=== PATIENT | male | born 1945 | race Native Hawaiian/Other Pacific Islander ===

== ENCOUNTER 2017-11-08 08:21 | Outpatient (CLI) | payer OTHER, BC ==
[~2017-11-08 08:21] MED LIST: AMLO5TAB PO; AMOX875T8; DIALYVITE PO; EQL ASPIRIN325 M1 OR; HYDROCHLOROT12.5 M1 PO; IRBE150T8 PO; LABETALOL100 MG PO; LEVO0.1224 PO; LIPITOR10 MG PO; OMEP20CA PO; SODIUM BICAR650 MG PO; TWYNSTA PO; ZIN PO
== END 2017-11-08 19:12 | disposition home or self-care (01) ==
LOC: LABW 08:21
DX: E03.8 Other specified hypothyroidism (principal); R73.09 Other abnormal glucose; I10 Essential (primary) hypertension
CPT/HCPCS: 36415; 84439; 84443

== ENCOUNTER 2018-05-02 08:15 | Outpatient (CLI) | payer OTHER, BC | END 2018-05-02 22:01 | disposition home or self-care (01) | LOC: LABW 08:15 | DX: E03.8 Other specified hypothyroidism (principal); I10 Essential (primary) hypertension; R73.09 Other abnormal glucose; M10.071 Idiopathic gout, right ankle and foot | CPT/HCPCS: 36415; 84439; 84443; 84550 ==

== ENCOUNTER 2018-06-14 08:36 | Outpatient (CLI) | payer OTHER, BC ==
[2018-06-14 08:56] LABS: PLATELET COUNT 119 K/uL (142-355)
[2018-06-14 09:36] LABS: POTASSIUM 4.2 mmol/L (3.6-5.2)
== END 2018-06-14 23:44 | disposition home or self-care (01) ==
LOC: LABW 08:36
PROVIDERS: Nurse Practitioner
DX: R79.89 Other specified abnormal findings of blood chemistry (principal); K76.0 Fatty (change of) liver, not elsewhere classified; K74.0 Hepatic fibrosis
CPT/HCPCS: 36415; 80053; 82105; 82140; 85027

== ENCOUNTER 2019-02-02 14:07 | Outpatient (CLI) | payer OTHER, BC | END 2019-02-02 19:59 | disposition home or self-care (01) | LOC: RAD 14:07 | DX: J44.1 Chronic obstructive pulmonary disease with (acute) exacerbation (principal) ==

== ENCOUNTER 2019-03-08 12:52 | Inpatient (IN) | payer OTHER, BC ==
[~2019-03-08] VITALS: Ht 175.3 cm; Wt 91.4 kg
[2019-03-08 12:58] VITALS: BP 120/65; TEMP 98.9
[2019-03-08 13:48] LABS: PLATELET COUNT 111 K/uL (142-355)
[2019-03-08 14:03] LABS: POTASSIUM 3.8 mmol/L (3.6-5.2); SODIUM 138 mmol/L (136-145)
[2019-03-08] MEDS ORDERED: FURO20TA67 PO (16:26)
[2019-03-08] MEDS ORDERED: OMEPRAZOLE DR40 MG PO (16:27)
[2019-03-08] MEDS ORDERED: ULORIC40 MG PO ×2 (16:27→18:03)
[2019-03-08] MEDS ORDERED: LABETALOL100 MG PO (17:55)
[2019-03-08] MEDS ORDERED: HYDROCHLOROT12.5 M1 PO (17:56)
[2019-03-08] MEDS ORDERED: TWYNSTA PO (17:57)
[2019-03-08] MEDS ORDERED: LEVO0.2T35 PO (17:58)
[2019-03-08] MEDS ORDERED: SODI650T PO (17:59)
[2019-03-08 18:00] VITALS: BP 146/68; TEMP 98; Ht 175.3 cm; Wt 91.4 kg
[2019-03-08] MEDS ORDERED: OMEPRAZOLE40 MG PO (18:00)
[2019-03-08] MEDS ORDERED: FISH OIL1 C10 PO (18:00)
[2019-03-08] MEDS ORDERED: FLONASE AL50 MCG/ACT NAS (18:01)
[2019-03-08] MEDS ORDERED: BIOTIN1000 MCG PO (18:01)
[2019-03-08] MEDS ORDERED: ZOFRAN8 MG PO (18:02)
[2019-03-08] MEDS ORDERED: MECLIZINE25 MG PO (18:03)
[2019-03-08 19:00] VITALS: BP 121/66; BP 129/77
[2019-03-08 20:00] VITALS: BP 130/70; TEMP 98.3
[2019-03-08 21:00] VITALS: BP 140/85
[2019-03-08 23:00] VITALS: BP 140/77
[2019-03-09] VITALS (22 sets, daily range): BP systolic 94–143; BP diastolic 46–83; TEMP 97.2–98.4
[2019-03-09 05:14] LABS: PLATELET COUNT 104 K/uL (142-355)
[2019-03-09 05:32] LABS: POTASSIUM 4.2 mmol/L (3.6-5.2)
[2019-03-10] VITALS (16 sets, daily range): BP systolic 89–136; BP diastolic 47–92; TEMP 97.5–98.1
[2019-03-10 06:50] LABS: PLATELET COUNT 127 K/uL (142-355)
[2019-03-10 08:12] LABS: POTASSIUM 4.5 mmol/L (3.6-5.2)
[2019-03-11] VITALS: BP 104/65; TEMP 98.4
[2019-03-11 04:00] VITALS: BP 103/58; TEMP 98.2
[2019-03-11 05:22] LABS: PLATELET COUNT 103 K/uL (142-355)
[2019-03-11 08:00] VITALS: BP 110/72; TEMP 97.5
== END 2019-03-11 09:11 | disposition home or self-care (01) | DRG 57 ==
LOC: ED 12:52 → ICU 16:41 → MED/SURG 03-10 11:10
PROVIDERS: Internal Medicine; ADMIT Emergency Medicine
DX: I69.314 Frontal lobe and executive function deficit following cerebral infarction (principal); N18.4 Chronic kidney disease, stage 4 (severe); G93.49 Other encephalopathy; E03.8 Other specified hypothyroidism; G47.33 Obstructive sleep apnea (adult) (pediatric); J44.9 Chronic obstructive pulmonary disease, unspecified; I73.89 Other specified peripheral vascular diseases; I12.9 Hypertensive chronic kidney disease with stage 1 through stage 4 chronic kidney disease, or unspecified chronic kidney disease
CPT/HCPCS: 36415; 80053; 82550; 82553; 84484; 85027; 93005; 99283; J1650

== ENCOUNTER 2019-03-19 13:35 | Emergency (ER) | payer OTHER, BC ==
[~2019-03-19] VITALS: Ht 175.3 cm; Wt 88.0 kg
[~2019-03-19 13:35] MED LIST changes: +BIOTIN1000 MCG PO; +FISH OIL1 C10 PO; +FLONASE AL50 MCG/ACT NAS; +FURO20TA67 PO; +LEVO0.2T35 PO; +MECLIZINE25 MG PO; +OMEPRAZOLE DR40 MG PO; +OMEPRAZOLE40 MG PO; +SODI650T PO; +ULORIC40 MG PO; +ZOFRAN8 MG PO
[2019-03-19 14:42] LABS: PLATELET COUNT 121 K/uL (142-355)
[2019-03-19 15:00] LABS: SODIUM 138 mmol/L (136-145)
[2019-03-19 17:05] VITALS: BP 119/76; TEMP 98.1
== END 2019-03-19 17:11 | disposition home or self-care (01) ==
LOC: ED 13:35
PROVIDERS: Family Medicine
DX: G45.9 Transient cerebral ischemic attack, unspecified (principal)
CPT/HCPCS: 36415; 80053; 81000; 82550; 84484; 85027; 85379; 85610; 85730; 93005; 99283

== ENCOUNTER 2019-10-31 08:05 | Outpatient (CLI) | payer OTHER, BC ==
[2019-10-31 09:14] LABS: POTASSIUM 4.4 mmol/L (3.6-5.2)
[2019-10-31 09:55] LABS: PLATELET COUNT 145 K/uL (142-355)
== END 2019-10-31 20:13 | disposition home or self-care (01) ==
LOC: LABW 08:05
PROVIDERS: Internal Medicine
DX: I25.10 Atherosclerotic heart disease of native coronary artery without angina pectoris (principal); Z79.899 Other long term (current) drug therapy
CPT/HCPCS: 36415; 80053; 83036; 85027

== ENCOUNTER 2019-11-07 08:44 | Outpatient (CLI) | payer OTHER, BC ==
[2019-11-07 11:23] LABS: POTASSIUM 4.4 mmol/L (3.6-5.2)
== END 2019-11-07 20:49 | disposition home or self-care (01) ==
LOC: LABW 08:44
PROVIDERS: Nurse Practitioner Family
DX: E03.8 Other specified hypothyroidism (principal); R73.09 Other abnormal glucose; I10 Essential (primary) hypertension
CPT/HCPCS: 36415; 80053; 80061; 84439; 84443

== ENCOUNTER 2019-12-22 08:41 | Emergency (ER) | payer OTHER, BC ==
[~2019-12-22] VITALS: Ht 175.3 cm; Wt 96.2 kg
[2019-12-22 09:50] LABS: PLATELET COUNT 74 K/uL (142-355)
[2019-12-22 09:57] LABS: POTASSIUM 4.1 mmol/L (3.6-5.2)
[2019-12-22 11:25] VITALS: BP 114/70; TEMP 100.9
== END 2019-12-22 11:26 | disposition home or self-care (01) ==
LOC: ED 08:41
PROVIDERS: Family Medicine
DX: J10.1 Influenza due to other identified influenza virus with other respiratory manifestations (principal); R50.9 Fever, unspecified
CPT/HCPCS: 80053; 85027; 87502; 87651; 99283

== ENCOUNTER 2021-03-03 09:11 | Outpatient (CLI) | payer BC | END 2021-03-03 19:19 | disposition home or self-care (01) | LOC: RAD 09:11 | PROVIDERS: ATTEND Internal Medicine | DX: J40 Bronchitis, not specified as acute or chronic (principal) ==

== ENCOUNTER 2021-03-13 11:22 | Inpatient (IN) | payer BC ==
[~2021-03-13] VITALS: Ht 175.3 cm; Wt 89.6 kg
[2021-03-13 12:29] LABS: PLATELET COUNT 54 K/uL (142-355)
[2021-03-13 13:02] VITALS: BP 155/62; TEMP 97.9; Ht 175.3 cm; Wt 89.6 kg
[2021-03-13] MEDS ORDERED: CRESTOR20 MG PO (13:53)
[2021-03-13] MEDS ORDERED: SODI650T PO (13:53)
[2021-03-13] MEDS ORDERED: CEFUROXIME500 MG PO (13:55)
[2021-03-13] MEDS ORDERED: ISOS30TA17 PO (13:55)
[2021-03-13] MEDS ORDERED: BENZONATATE100 MG PO (13:57)
[2021-03-13] MEDS ORDERED: METOPROLOL25 M1 PO (13:57)
[2021-03-13] MEDS ORDERED: SITA50TA2 PO (13:58)
[2021-03-13] MEDS ORDERED: APIX1TAB PO (13:59)
[2021-03-13] MEDS ORDERED: EUTHYROX125 MCG PO (14:00)
[2021-03-13] MEDS ORDERED: DIALYVITE PO (14:01)
[2021-03-13] MEDS ORDERED: ZIN PO (14:01)
[2021-03-13] MEDS ORDERED: BIOTIN1000 MCG PO (14:02)
[2021-03-13] MEDS ORDERED: VITAMIN D35000 UNIT PO (14:03)
[2021-03-13] MEDS ORDERED: NITR0.4S2 SL (14:14)
[2021-03-13 16:00] VITALS: BP 150/67; TEMP 97.6
[2021-03-13 20:00] VITALS: BP 109/73; TEMP 98.6
[2021-03-13 23:57] VITALS: BP 117/72; TEMP 98.1
[2021-03-14 01:15] LABS: PLATELET COUNT 50 K/uL (142-355)
[2021-03-14 02:19] LABS: POTASSIUM 4.1 mmol/L (3.6-5.2)
[2021-03-14 04:00] VITALS: BP 142/79; TEMP 98.1
[2021-03-14 08:00] VITALS: BP 138/74
[2021-03-14 12:00] VITALS: BP 126/71; TEMP 98.2
[2021-03-14 16:00] VITALS: BP 131/75; TEMP 98.2
[2021-03-14 20:00] VITALS: BP 134/75; TEMP 98.1
[2021-03-15] VITALS: BP 154/85; TEMP 98.3
[2021-03-15 04:00] VITALS: BP 149/68; TEMP 97.5
[2021-03-15 08:00] VITALS: BP 116/64; TEMP 97.6
[2021-03-15] MEDS ORDERED: PANTOPRAZOLE 40MG TA PO ×2 (11:36→11:37)
[2021-03-15 12:00] VITALS: BP 103/61; TEMP 97.6
== END 2021-03-15 12:20 | disposition home or self-care (01) | DRG 382 ==
LOC: MED/SURG 11:22
PROVIDERS: ADMIT Internal Medicine; ATTEND Internal Medicine
DX: K22.70 Barrett's esophagus without dysplasia (principal); R41.82 Altered mental status, unspecified; I69.391 Dysphagia following cerebral infarction; R13.19 Other dysphagia; E03.8 Other specified hypothyroidism; D69.6 Thrombocytopenia, unspecified; I12.9 Hypertensive chronic kidney disease with stage 1 through stage 4 chronic kidney disease, or unspecified chronic kidney disease; E11.22 Type 2 diabetes mellitus with diabetic chronic kidney disease; N18.30 Chronic kidney disease, stage 3 unspecified; K21.00 Gastro-esophageal reflux disease with esophagitis, without bleeding
CPT/HCPCS: 36415; 80053; 82550; 82948; 84443; 84484; 85027; 85379; 87635; 93005; J3490; U0003

== ENCOUNTER 2021-04-11 10:08 | Outpatient (CLI) | payer BC ==
[~2021-04-11 10:08] MED LIST changes: +APIX1TAB PO; +BENZONATATE100 MG PO; +CEFUROXIME500 MG PO; +CRESTOR20 MG PO; +EUTHYROX125 MCG PO; +ISOS30TA17 PO; +METOPROLOL25 M1 PO; +NITR0.4S2 SL; +PANTOPRAZOLE 40MG TA PO; +SITA50TA2 PO; +VITAMIN D35000 UNIT PO
== END 2021-04-11 22:40 | disposition home or self-care (01) ==
LOC: RAD 10:08 → RESP 10:08
PROVIDERS: ATTEND Nurse Practitioner Family
DX: R06.09 Other forms of dyspnea (principal)

== ENCOUNTER 2021-06-04 13:21 | Outpatient (CLI) | payer BC | END 2021-06-04 22:18 | disposition home or self-care (01) | LOC: RAD 13:21 | PROVIDERS: ATTEND Nurse Practitioner Family | DX: R06.00 Dyspnea, unspecified (principal) ==

== ENCOUNTER 2021-06-29 14:19 | Observation (INO) | payer BC ==
[2021-06-29] VITALS (8 sets, daily range): BP systolic 115–157; BP diastolic 62–78; TEMP 97–97.8; Ht 175.3 cm; Wt 90.3 kg
[~2021-06-29] VITALS: Ht 175.3 cm; Wt 90.3 kg
[2021-06-29 14:48] LABS: PLATELET COUNT 48 K/uL (142-355)
[2021-06-29 14:49] LABS: POTASSIUM 4.3 mmol/L (3.6-5.2); SODIUM 138 mmol/L (136-145)
[2021-06-29 14:56] LABS: PARTIAL THROMBOPLASTIN TIME 27.3 SECONDS (24.5-33.6)
[2021-06-30 03:59] VITALS: BP 156/77; TEMP 97.4
[2021-06-30 04:59] LABS: PLATELET COUNT 39 K/uL (142-355)
[2021-06-30 05:20] LABS: POTASSIUM 4.3 mmol/L (3.6-5.2)
--- NOTE | 2021-06-30 15:48 | NUR ---
i spoke with pt in his room this am to discuss dc plan needs, he has FU appt with Dr. 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 Roney Corral ph [phone]/ fx [phone] for 08/11/21 @ 9:15am. he denied any further needs.
== END 2021-06-30 13:45 | disposition home or self-care (01) ==
LOC: ED 14:19 → MED/SURG 15:15
PROVIDERS: Hospitalist; ADMIT Internal Medicine Endocrinology, Diabetes & Metabolism; ATTEND Internal Medicine Endocrinology, Diabetes & Metabolism
DX: R07.89 Other chest pain (principal); E11.9 Type 2 diabetes mellitus without complications; I25.10 Atherosclerotic heart disease of native coronary artery without angina pectoris; K21.9 Gastro-esophageal reflux disease without esophagitis; E78.49 Other hyperlipidemia; I73.89 Other specified peripheral vascular diseases; E03.8 Other specified hypothyroidism; D69.6 Thrombocytopenia, unspecified; I12.9 Hypertensive chronic kidney disease with stage 1 through stage 4 chronic kidney disease, or unspecified chronic kidney disease; E11.22 Type 2 diabetes mellitus with diabetic chronic kidney disease; N18.30 Chronic kidney disease, stage 3 unspecified; G47.33 Obstructive sleep apnea (adult) (pediatric); Z86.73 Personal history of transient ischemic attack (TIA), and cerebral infarction without residual deficits
CPT/HCPCS: 36415; 80048; 80053; 82550; 82948; 83880; 84484; 85008; 85027; 85610; 85730; 87635; 93005; 94760; 96374; 99220; 99284; G0378; J1885; U0003

== ENCOUNTER 2021-11-05 15:31 | Emergency (ER) | payer BC ==
[~2021-11-05] VITALS: Ht 175.3 cm; Wt 90.3 kg
[2021-11-05 15:31] VITALS: TEMP 98.9
[2021-11-05 16:46] LABS: PLATELET COUNT 63 K/uL (142-355)
[2021-11-05 18:39] VITALS: BP 118/82
== END 2021-11-05 18:40 | disposition home or self-care (01) ==
LOC: ED 15:31
PROVIDERS: Emergency Medicine
DX: R13.19 Other dysphagia (principal); G93.89 Other specified disorders of brain
CPT/HCPCS: 85027; 99283

== ENCOUNTER 2021-12-01 19:19 | Emergency (ER) | payer BC ==
[~2021-12-01] VITALS: Ht 175.3 cm; Wt 86.2 kg
[2021-12-01 20:10] VITALS: BP 139/80; TEMP 97.2
== END 2021-12-01 20:10 | disposition home or self-care (01) ==
LOC: ED 19:19
DX: S01.512A Laceration without foreign body of oral cavity, initial encounter (principal); X58.XXXA Exposure to other specified factors, initial encounter; Y92.89 Other specified places as the place of occurrence of the external cause
CPT/HCPCS: 99282

== ENCOUNTER 2022-04-21 14:59 | Outpatient (CLI) | payer BC ==
[2022-04-21 15:33] LABS: PLATELET COUNT 46 K/uL (142-355)
[2022-04-21 15:59] LABS: POTASSIUM 3.2 mmol/L (3.6-5.2)
== END 2022-04-21 19:30 | disposition home or self-care (01) ==
LOC: LAB 14:59
PROVIDERS: ATTEND Internal Medicine
DX: K76.7 Hepatorenal syndrome (principal); I50.9 Heart failure, unspecified; D64.89 Other specified anemias
CPT/HCPCS: 80048; 85027

== ENCOUNTER 2022-04-28 13:35 | Outpatient (CLI) | payer BC ==
[2022-04-28 14:32] LABS: PLATELET COUNT 65 K/uL (142-355)
[2022-04-28 14:35] LABS: POTASSIUM 3.6 mmol/L (3.6-5.2)
== END 2022-04-28 19:32 | disposition home or self-care (01) ==
LOC: LAB 13:35
PROVIDERS: ATTEND Internal Medicine
DX: I25.10 Atherosclerotic heart disease of native coronary artery without angina pectoris (principal); I13.0 Hypertensive heart and chronic kidney disease with heart failure and stage 1 through stage 4 chronic kidney disease, or unspecified chronic kidney disease; I50.9 Heart failure, unspecified; D63.1 Anemia in chronic kidney disease; N18.32 Chronic kidney disease, stage 3b; K74.69 Other cirrhosis of liver; I69.320 Aphasia following cerebral infarction; K22.70 Barrett's esophagus without dysplasia; R73.03 Prediabetes
CPT/HCPCS: 80048; 85027

== ENCOUNTER 2022-05-05 11:08 | Outpatient (CLI) | payer BC ==
[2022-05-05 11:22] LABS: PLATELET COUNT 48 K/uL (142-355)
[2022-05-05 11:29] LABS: POTASSIUM 3.5 mmol/L (3.6-5.2)
== END 2022-05-05 18:52 | disposition home or self-care (01) ==
LOC: LAB 11:08
PROVIDERS: ATTEND Internal Medicine
DX: I25.10 Atherosclerotic heart disease of native coronary artery without angina pectoris (principal); I13.0 Hypertensive heart and chronic kidney disease with heart failure and stage 1 through stage 4 chronic kidney disease, or unspecified chronic kidney disease; I50.9 Heart failure, unspecified; D63.1 Anemia in chronic kidney disease; N18.32 Chronic kidney disease, stage 3b; K74.69 Other cirrhosis of liver; I69.320 Aphasia following cerebral infarction; K22.70 Barrett's esophagus without dysplasia; R73.03 Prediabetes
CPT/HCPCS: 80048; 85027

== ENCOUNTER 2022-05-20 08:13 | Outpatient (CLI) | payer BC ==
[2022-05-20 08:38] LABS: PLATELET COUNT 54 K/uL (142-355)
[2022-05-20 09:00] LABS: POTASSIUM 3.3 mmol/L (3.6-5.2)
== END 2022-05-20 19:20 | disposition home or self-care (01) ==
LOC: LABW 08:13
PROVIDERS: ATTEND Internal Medicine
DX: N18.32 Chronic kidney disease, stage 3b (principal); E03.8 Other specified hypothyroidism; E11.9 Type 2 diabetes mellitus without complications
CPT/HCPCS: 36415; 80053; 81002; 81015; 82140; 82542; 83036; 84439; 84443; 85027

== ENCOUNTER 2022-08-24 07:18 | Emergency (ER) | payer BC ==
[~2022-08-24] VITALS: Ht 175.3 cm; Wt 86.2 kg
[2022-08-24 08:56] LABS: PLATELET COUNT 42 K/uL (142-355)
[2022-08-24 09:01] LABS: POTASSIUM 2.7 mmol/L (3.6-5.2)
[2022-08-24 13:21] VITALS: BP 115/71; TEMP 98
== END 2022-08-24 13:21 | disposition still patient (30) ==
LOC: ED 07:18
PROVIDERS: Emergency Medicine
PROC: 0NSBXZZ Reposition Nasal Bone, External Approach (ICD-10-PCS; principal; 2022-08-24)
PROC: 0HQ1XZZ Repair Face Skin, External Approach (ICD-10-PCS; 2022-08-24)
PROC: 0CQ00ZZ Repair Upper Lip, Open Approach (ICD-10-PCS; 2022-08-24)
PROC: 09QK0ZZ Repair Nasal Mucosa and Soft Tissue, Open Approach (ICD-10-PCS; 2022-08-24)
DX: S01.81XA Laceration without foreign body of other part of head, initial encounter (principal); S01.21XA Laceration without foreign body of nose, initial encounter; S01.511A Laceration without foreign body of lip, initial encounter; S01.111A Laceration without foreign body of right eyelid and periocular area, initial encounter; S02.2XXA Fracture of nasal bones, initial encounter for closed fracture; E87.6 Hypokalemia; K76.89 Other specified diseases of liver; W18.39XA Other fall on same level, initial encounter; Y92.89 Other specified places as the place of occurrence of the external cause
CPT/HCPCS: 80053; 85027; 90471; 90715; 96360; 96365; 96366; 99284; J0696; J2001; J7040